=== PATIENT | male | born 1970 | race Caucasian/White ===

== ENCOUNTER 2018-01-18 12:23 | Inpatient (IN) | payer OTHER ==
[2018-01-18 12:55] VITALS: BMI 29.7
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
[2018-01-18] MEDS ORDERED: P-EPHED 60MG/TRIPROLIDI 2.5MG TABLET PO PRN (15:10)
[2018-01-18] MEDS ORDERED: MAGNESIUM CITRATE 300 ML BOTTLE PO PRN (15:10)
[2018-01-18] MEDS ORDERED: LOPERAMIDE HCL 2 MG CAPSULE PO PRN (15:10)
[2018-01-18] MEDS ORDERED: ACETAMINOPHEN 325 MG TABLET (FP) PO PRN (15:10)
[2018-01-18] MEDS ORDERED: guaiFENesin/D-METHORPHAN HB 10 ML UNIT-DOSE CUPS PO PRN (15:10)
[2018-01-18] MEDS ORDERED: NICOTINE POLACRILEX 2 MG GUM BC PRN (15:10)
[2018-01-18] MEDS ORDERED: MAGNESIUM HYDROX 2400MG/30ML ORAL SUSPENSION 30 ML CUP PO PRN (15:10)
[2018-01-18] MEDS ORDERED: hydrOXYzine PAMOATE 25 MG CAPSULE (FP) PO PRN (15:10)
[2018-01-18] MEDS ORDERED: MENTHOL/PHENOL 1 EACH UD MM PRN (15:10)
[2018-01-18] MEDS ORDERED: IBUPROFEN 400 MG TABLET (FP) PO PRN (15:10)
[2018-01-18] MEDS: diazePAM 5 MG TABLET PO PRN (16:58)
[2018-01-18] MEDS ORDERED: FLU VACCINE QUAD 60 MCG/0.5 ML (MDV 18-19) IM ONE (17:00)
[2018-01-18] MEDS: THIAMINE HCL 100 MG TABLET (FP) PO SCH (22:28)
[2018-01-18] MEDS: MELATONIN 5 MG TABLETS PO PRN (22:28)
[2018-01-18] MEDS: diazePAM 5 MG TABLET PO SCH (22:28)
[2018-01-18 23:21] LABS: URINE APPEARANCE CLEAR; URINE BILIRUBIN NEGATIVE (<2.0 mg/dL); URINE COLOR YELLOW; URINE GLUCOSE (UA) NEGATIVE (NEGATIVE); URINE KETONE NEGATIVE (NEGATIVE); URINE LEUK ESTERASE NEGATIVE (NEGATIVE); URINE NITRITE NEGATIVE (NEGATIVE); URINE PROTEIN NEGATIVE (NEGATIVE); URINE UROBILINOGEN NEGATIVE mg/dL (0.2-1.0)
[2018-01-19] MEDS ORDERED: METHADONE HCL 10 MG TABLET ONE (04:09)
[2018-01-19] MEDS ORDERED: METHADONE HCL 40 MG DISPERSABLE TABLET ONE (04:10)
[2018-01-19] MEDS: diazePAM 5 MG TABLET PO SCH ×3 (05:52→22:27)
[2018-01-19] MEDS: METHADONE 40 MG, METHADONE 10 MG PO SCH (05:52)
[2018-01-19] MEDS ORDERED: METHADONE HCL 5 MG TABLET PO SCH (06:00)
[2018-01-19 10:08] LABS: HEMATOCRIT 42.3 % (35.4-49); HEMOGLOBIN 13.5 GM/dL (11.7-16.9); MCH 30.4 pg (25.7-33.7); MEAN CELL VOLUME 94.9 fl (80-96); MEAN PLT VOLUME 9.6 fl (7.5-11.1); PLATELET COUNT 217 K/MM3 (134-434); RBC 4.46 M/mm3 (4.00-5.60); RDW 12.8 % (11.9-15.9); WHITE BLOOD COUNT 5.5 K/mm3 (4.0-10.0)
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
[2018-01-19 10:27] LABS: ALBUMIN 3.2 g/dl (3.4-5.0); ALK PHOS 69 U/L (45-117); ANION GAP 8 MMOL/L (8-16); BILIRUBIN,TOTAL 0.3 mg/dL (0.2-1); BLOOD UREA NITROGEN 24 mg/dL (7-18); CALCIUM 8.8 mg/dL (8.5-10.1); CHLORIDE 108 mmol/L (98-107); CO2 26 mmol/L (21-32); CREATININE 0.7 mg/dL (0.55-1.3); GLUCOSE,RANDOM 110 mg/dL (74-106); POTASSIUM 4.5 mmol/L (3.5-5.1); SGOT/AST 13 U/L (15-37); SGPT/ALT 20 U/L (13-61); SODIUM 142 mmol/L (136-145); TOT PROT 6.2 g/dl (6.4-8.2)
[2018-01-19] MEDS: PRENATAL VITAMINS W/ FOLIC ACID TABLET (FP) PO SCH (10:36)
[2018-01-19] MEDS: diazePAM 5 MG TABLET PO PRN (10:36)
[2018-01-19] MEDS ORDERED: FLU VACCINE QUAD 60 MCG/0.5 ML (MDV 18-19) IM ONE (12:00)
--- NOTE | 2018-01-19 12:13 | EKG ---
Test Reason : Blood Pressure : / mmHG Vent. Rate : 056 BPM Atrial Rate : 056 BPM P-R Int : 116 ms QRS Dur : 088 ms QT Int : 444 ms P-R-T Axes : 024 037 017 degrees QTc Int : 428 ms POOR DATA QUALITY, INTERPRETATION MAY BE ADVERSELY AFFECTED SINUS BRADYCARDIA OTHERWISE NORMAL ECG NO PREVIOUS ECGS AVAILABLE Confirmed by MARCY SALAS, REKHA ([id number]) on 01/19/2018 12:13:24 PM Referred By: Confirmed By:REKHA VIDAL MD
[2018-01-19] MEDS: SERTRALINE HCL 50 MG TABLET (FP) PO SCH (12:14)
[2018-01-19] MEDS: risperiDONE 1 MG TABLET (FP) PO SCH ×2 (12:14→22:27)
--- NOTE | 2018-01-19 14:53 | PN ---
S CIWA - CIWA Score Nausea/Vomitin Muscle Tremors: 4-Moderate,w/Arms Extend Anxiety: 4-Mod. Anxious/Guarded Agitation: 4-Moderately Restless Paroxysmal Sweats: 3 Orientation: 0-Oriented Tacttile Disturbances: 0-None Auditory Disturbances: 0-None Visual Disturbances: 0-None Headache: 0-None Present CIWA-Ar Total Score: 18 BHS Progress Note (SOAP) Subjective: Anxious, sweating, interrupted sleep Objective: 01/19/18 14:49 Last Vital Signs Temp Pulse Resp BP Pulse Ox 98.1 F 53 L 18 101/62 01/19/18 13:13 01/19/18 13:13 01/19/18 13:13 01/19/18 13:13 Laboratory Tests 01/18/18 01/19/18 01/19/18 23:00 07:00 07:00 WBC 5.5 RBC 4.46 Hgb 13.5 Hct 42.3 MCV 94.9 MCH 30.4 MCHC 32.0 RDW 12.8 Plt Count 217 MPV 9.6 Sodium 142 Potassium 4.5 Chloride 108 H Carbon Dioxide 26 Anion Gap 8 BUN 24 H Creatinine 0.7 Creat Clearance w eGFR > 60 Random Glucose 110 H Calcium 8.8 Total Bilirubin 0.3 AST 13 L ALT 20 Alkaline Phosphatase 69 Total Protein 6.2 L Albumin 3.2 L Urine Color Yellow Urine Appearance Clear Urine pH 6.0 Ur Specific [place] 1.021 Urine Protein Negative Urine Glucose (UA) Negative Urine Ketones Negative Urine Blood Negative Urine Nitrite Negative Urine Bilirubin Negative Urine Urobilinogen Negative Ur Leukocyte Esterase Negative RPR Titer 01/19/18 07:00 WBC RBC Hgb Hct MCV MCH MCHC RDW Plt Count MPV Sodium Potassium Chloride Carbon Dioxide Anion Gap BUN Creatinine Creat Clearance w eGFR Random Glucose Calcium Total Bilirubin AST ALT Alkaline Phosphatase Total Protein Albumin Urine Color Urine Appearance Urine pH Ur Specific [place] Urine Protein Urine Glucose (UA) Urine Ketones Urine Blood Urine Nitrite Urine Bilirubin Urine Urobilinogen Ur Leukocyte Esterase RPR Titer Nonreactive Labs reviewed: bun 24 Assessment: 01/19/18 14:50 Withdrawal sxs Noted with azotemia Plan: Continue detox Azotemia: encouraged PO water intake
[2018-01-19] MEDS ORDERED: PT OWN MED DRAWER 7, Y5N ONE (22:24)
[2018-01-19] MEDS: THIAMINE HCL 100 MG TABLET (FP) PO SCH (22:27)
[2018-01-19] MEDS: MELATONIN 5 MG TABLETS PO PRN (22:27)
[2018-01-19] MEDS: MAG HYDROX/AL HYDROX/SIMETH 30 ML UNIT-DOSE CUP PO PRN (23:55)
[2018-01-20] MEDS ORDERED: METHADONE HCL 10 MG TABLET ONE (04:49)
[2018-01-20] MEDS ORDERED: METHADONE HCL 40 MG DISPERSABLE TABLET ONE (04:49)
[2018-01-20] MEDS: METHADONE 40 MG, METHADONE 10 MG PO SCH (05:27)
[2018-01-20] MEDS: diazePAM 5 MG TABLET PO SCH ×2 (10:45→22:20)
[2018-01-20] MEDS: PRENATAL VITAMINS W/ FOLIC ACID TABLET (FP) PO SCH (10:45)
[2018-01-20] MEDS: SERTRALINE HCL 50 MG TABLET (FP) PO SCH (10:45)
[2018-01-20] MEDS: risperiDONE 1 MG TABLET (FP) PO SCH ×2 (10:45→22:19)
[2018-01-20] MEDS: MAG HYDROX/AL HYDROX/SIMETH 30 ML UNIT-DOSE CUP PO PRN (11:16)
--- NOTE | 2018-01-20 16:52 | PN ---
[facility] CIWA - CIWA Score Nausea/Vomitin Muscle Tremors: 3 Anxiety: 3 Agitation: 3 Paroxysmal Sweats: 3 Orientation: 0-Oriented Tacttile Disturbances: 0-None Auditory Disturbances: 0-None Visual Disturbances: 0-None Headache: 1-Very Mild CIWA-Ar Total Score: 15 S Progress Note (SOAP) Subjective: Interrupted sleep, sweating Objective: 01/20/18 16:51 Last Vital Signs Temp Pulse Resp BP Pulse Ox 98.6 F 53 L 18 100/63 01/20/18 14:27 01/20/18 14:27 01/20/18 14:27 01/20/18 14:27 Laboratory Tests 01/18/18 01/19/18 01/19/18 23:00 07:00 07:00 WBC 5.5 RBC 4.46 Hgb 13.5 Hct 42.3 MCV 94.9 MCH 30.4 MCHC 32.0 RDW 12.8 Plt Count 217 MPV 9.6 Sodium 142 Potassium 4.5 Chloride 108 H Carbon Dioxide 26 Anion Gap 8 BUN 24 H Creatinine 0.7 Creat Clearance w eGFR > 60 Random Glucose 110 H Calcium 8.8 Total Bilirubin 0.3 AST 13 L ALT 20 Alkaline Phosphatase 69 Total Protein 6.2 L Albumin 3.2 L Urine Color Yellow Urine Appearance Clear Urine pH 6.0 Ur Specific [place] 1.021 Urine Protein Negative Urine Glucose (UA) Negative Urine Ketones Negative Urine Blood Negative Urine Nitrite Negative Urine Bilirubin Negative Urine Urobilinogen Negative Ur Leukocyte Esterase Negative RPR Titer 01/19/18 07:00 WBC RBC Hgb Hct MCV MCH MCHC RDW Plt Count MPV Sodium Potassium Chloride Carbon Dioxide Anion Gap BUN Creatinine Creat Clearance w eGFR Random Glucose Calcium Total Bilirubin AST ALT Alkaline Phosphatase Total Protein Albumin Urine Color Urine Appearance Urine pH Ur Specific [place] Urine Protein Urine Glucose (UA) Urine Ketones Urine Blood Urine Nitrite Urine Bilirubin Urine Urobilinogen Ur Leukocyte Esterase RPR Titer Nonreactive Labs reviewed: bun 24 Assessment: 01/20/18 16:51 Withdrawal sxs Noted with azotemia Plan: Continue detox Azotemia: encouraged PO water intake
[2018-01-20] MEDS: THIAMINE HCL 100 MG TABLET (FP) PO SCH (22:20)
[2018-01-20] MEDS: MELATONIN 5 MG TABLETS PO PRN (22:20)
[2018-01-21] MEDS: MAG HYDROX/AL HYDROX/SIMETH 30 ML UNIT-DOSE CUP PO PRN (00:34)
[2018-01-21] MEDS ORDERED: METHADONE HCL 10 MG TABLET ONE (04:24)
[2018-01-21] MEDS ORDERED: METHADONE HCL 40 MG DISPERSABLE TABLET ONE (04:25)
[2018-01-21] MEDS: diazePAM 5 MG TABLET PO PRN (06:03)
[2018-01-21] MEDS: METHADONE 40 MG, METHADONE 10 MG PO SCH (06:03)
[2018-01-21] MEDS: PRENATAL VITAMINS W/ FOLIC ACID TABLET (FP) PO SCH (10:41)
[2018-01-21] MEDS: diazePAM 5 MG TABLET PO SCH ×2 (10:41→23:04)
[2018-01-21] MEDS: SERTRALINE HCL 50 MG TABLET (FP) PO SCH (10:41)
[2018-01-21] MEDS: risperiDONE 1 MG TABLET (FP) PO SCH ×2 (10:41→23:04)
--- NOTE | 2018-01-21 12:08 | PN ---
S Progress Note (SOAP) Subjective: alert,irritable,anxious,interrupted sleep Objective: 01/21/18 12:07 Vital Signs Temperature 97.2 F L 01/21/18 10:00 Pulse Rate 62 01/21/18 10:00 Respiratory Rate 16 01/21/18 10:00 Blood Pressure 88/54 L 01/21/18 10:00 O2 Sat by Pulse Oximetry (%) Assessment: 01/21/18 12:07 withdrawal symptom Plan: continue detox ,discharge in am
[2018-01-21] MEDS: THIAMINE HCL 100 MG TABLET (FP) PO SCH (23:04)
[2018-01-22] MEDS ORDERED: METHADONE HCL 40 MG DISPERSABLE TABLET ONE (03:46)
[2018-01-22] MEDS ORDERED: METHADONE HCL 10 MG TABLET ONE (03:46)
[2018-01-22] MEDS: METHADONE 40 MG, METHADONE 10 MG PO SCH (06:36)
[2018-01-22 06:38] VITALS: BP 135/72; PULSE 58; TEMP 98
[2018-01-22] MEDS ORDERED: diazePAM 5 MG TABLET PO SCH (10:00)
--- NOTE | 2018-01-22 11:35 | DS ---
[facility] Detox Discharge Summary Admission Date: 01/18/18 Discharge Date: 01/22/18 - History Present History: Alcohol Dependence, Cocaine Dependence, MMTP Pertinent Past History: Denies - Physical Exam Results Vital Signs: Vital Signs Temperature 98 F 01/22/18 06:37 Pulse Rate 58 L 01/22/18 06:37 Respiratory Rate 18 01/22/18 06:37 Blood Pressure 135/72 01/22/18 06:37 O2 Sat by Pulse Oximetry (%) Pertinent Admission Physical Exam Findings: Withdrawal sxs Laboratory Tests 01/18/18 01/19/18 01/19/18 23:00 07:00 07:00 WBC 5.5 RBC 4.46 Hgb 13.5 Hct 42.3 MCV 94.9 MCH 30.4 MCHC 32.0 RDW 12.8 Plt Count 217 MPV 9.6 Sodium 142 Potassium 4.5 Chloride 108 H Carbon Dioxide 26 Anion Gap 8 BUN 24 H Creatinine 0.7 Creat Clearance w eGFR > 60 Random Glucose 110 H Calcium 8.8 Total Bilirubin 0.3 AST 13 L ALT 20 Alkaline Phosphatase 69 Total Protein 6.2 L Albumin 3.2 L Urine Color Yellow Urine Appearance Clear Urine pH 6.0 Ur Specific [place] 1.021 Urine Protein Negative Urine Glucose (UA) Negative Urine Ketones Negative Urine Blood Negative Urine Nitrite Negative Urine Bilirubin Negative Urine Urobilinogen Negative Ur Leukocyte Esterase Negative RPR Titer 01/19/18 07:00 WBC RBC Hgb Hct MCV MCH MCHC RDW Plt Count MPV Sodium Potassium Chloride Carbon Dioxide Anion Gap BUN Creatinine Creat Clearance w eGFR Random Glucose Calcium Total Bilirubin AST ALT Alkaline Phosphatase Total Protein Albumin Urine Color Urine Appearance Urine pH Ur Specific [place] Urine Protein Urine Glucose (UA) Urine Ketones Urine Blood Urine Nitrite Urine Bilirubin Urine Urobilinogen Ur Leukocyte Esterase RPR Titer Nonreactive Labs reviewed - Treatment Hospital Course: Detox Protocol Followed, Detoxed Safely, Responded well, Discharged Condition Good - Medication Discharge Medications: Ambulatory Orders Risperidone [Risperdal -] 3 mg PO DAILY #30 tablet 02/27/16 Sertraline HCl [Zoloft -] 25 mg PO DAILY 01/18/18 - Diagnosis (1) Azotemia Status: Acute (2) Alcohol dependence with withdrawal, uncomplicated Status: Acute (3) Cocaine dependence Status: Chronic (4) Methadone maintenance therapy patient Status: Chronic (5) Nicotine dependence Status: Chronic Qualifiers: Nicotine product type: cigarettes Substance use status: unspecified nicotine-induced disorder Qualified Code(s): F17.219 - Nicotine dependence, cigarettes, with unspecified nicotine-induced disorders (6) Schizoaffective disorder Status: Chronic - AMA Did Patient Leave Against Medical Advice: No (F/U with your PCP within 1-2 weeks )
== END 2018-01-22 09:18 | disposition home or self-care (01) | DRG 773 ==
LOC: YASAS 12:23 → Y3N 15:43
PROC: HZ2ZZZZ Detoxification Services for Substance Abuse Treatment (ICD-10-PCS; principal; 2018-01-18)
DX: F10.230 Alcohol dependence with withdrawal, uncomplicated (principal); F14.20 Cocaine dependence, uncomplicated; F11.20 Opioid dependence, uncomplicated; F17.219 Nicotine dependence, cigarettes, with unspecified nicotine-induced disorders; F25.9 Schizoaffective disorder, unspecified; R79.89 Other specified abnormal findings of blood chemistry; Z86.19 Personal history of other infectious and parasitic diseases; Z91.5 Personal history of self-harm
CPT/HCPCS: 36415; 80053; 81003; 85027; 86593; 90688; 93005; 93010; G0008; J2794

== ENCOUNTER 2018-07-29 09:53 | Inpatient (IN) | payer OTHER ==
[2018-07-29 11:08] VITALS: BMI 30.2
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
[2018-07-29] MEDS ORDERED: NICOTINE POLACRILEX 2 MG GUM BUC PRN (11:40)
[2018-07-29] MEDS ORDERED: BISMUTH SUBSALICYLATE 524 MG/30 ML UD PO PRN (11:40)
[2018-07-29] MEDS ORDERED: IBUPROFEN 400 MG TABLET (FP) PO PRN (11:40)
[2018-07-29] MEDS ORDERED: MELATONIN 5 MG TABLETS PO PRN (11:40)
[2018-07-29] MEDS ORDERED: MAGNESIUM HYDROX 2400MG/30ML ORAL SUSPENSION 30 ML CUP PO PRN (11:40)
[2018-07-29] MEDS ORDERED: ACETAMINOPHEN 325 MG TABLET (FP) PO PRN (11:40)
[2018-07-29] MEDS ORDERED: ONDANSETRON *ODT* 4 MG TABLET SL PRN ×2 (11:40→11:53)
[2018-07-29] MEDS ORDERED: METHOCARBAMOL 500 MG TABLET PO PRN (11:40)
[2018-07-29] MEDS ORDERED: MAGNESIUM CITRATE 300 ML BOTTLE PO PRN (11:40)
[2018-07-29] MEDS ORDERED: chlordiazePOXIDE HCL 10 MG CAPSULE PO PRN (11:40)
[2018-07-29] MEDS ORDERED: MENTHOL/PHENOL 1 EACH UD MM PRN (11:40)
[2018-07-29] MEDS ORDERED: hydrOXYzine PAMOATE 50 MG CAPSULE (FP) PO PRN (11:40)
[2018-07-29] MEDS ORDERED: ISONIAZID 300 MG TABLET (FP) PO SCH (12:15)
[2018-07-29] MEDS: chlordiazePOXIDE HCL 25 MG CAPSULE PO SCH ×2 (12:54→22:30)
[2018-07-29] MEDS: PYRIDOXINE HCL (B-6) 50 MG TABLET (FP) PO SCH (12:54)
[2018-07-29] MEDS: THIAMINE HCL 100 MG TABLET (FP) PO SCH (22:30)
[2018-07-30] MEDS: MAG HYDROX/AL HYDROX/SIMETH 30 ML UNIT-DOSE CUP PO PRN ×2 (01:17→16:09)
[2018-07-30] MEDS ORDERED: METHADONE HCL 10 MG TABLET ONE (04:31)
[2018-07-30] MEDS ORDERED: METHADONE HCL 40 MG DISPERSABLE TABLET ONE (04:31)
[2018-07-30] MEDS: chlordiazePOXIDE HCL 25 MG CAPSULE PO SCH (05:35)
[2018-07-30] MEDS: METHADONE 40 MG, METHADONE 20 MG PO SCH (05:35)
[2018-07-30] MEDS ORDERED: METHADONE HCL 10 MG TABLET PO SCH (06:00)
[2018-07-30] MEDS: ISONIAZID 300 MG TABLET (FP) PO SCH (08:12)
[2018-07-30 10:22] LABS: ALBUMIN 3.6 g/dl (3.4-5.0); ALK PHOS 75 U/L (45-117); ANION GAP 5 MMOL/L (8-16); BILIRUBIN,TOTAL 0.5 mg/dL (0.2-1); BLOOD UREA NITROGEN 24 mg/dL (7-18); CALCIUM 8.7 mg/dL (8.5-10.1); CHLORIDE 108 mmol/L (98-107); CO2 27 mmol/L (21-32); CREATININE 0.8 mg/dL (0.55-1.3); GLUCOSE,RANDOM 110 mg/dL (74-106); POTASSIUM 4.7 mmol/L (3.5-5.1); SGOT/AST 16 U/L (15-37); SGPT/ALT 22 U/L (13-61); SODIUM 140 mmol/L (136-145); TOT PROT 6.5 g/dl (6.4-8.2)
[2018-07-30] MEDS: PRENATAL VITAMINS W/ FOLIC ACID TABLET (FP) PO SCH (10:25)
[2018-07-30] MEDS: PYRIDOXINE HCL (B-6) 50 MG TABLET (FP) PO SCH (10:26)
[2018-07-30 10:33] LABS: HEMATOCRIT 42.3 % (35.4-49); HEMOGLOBIN 14.3 GM/dL (11.7-16.9); MCH 31.3 pg (25.7-33.7); MCHC 33.9 g/dl (32.0-35.9); MEAN CELL VOLUME 92.2 fl (80-96); MEAN PLT VOLUME 9.9 fl (7.5-11.1); PLATELET COUNT 184 K/MM3 (134-434); RBC 4.58 M/mm3 (4.00-5.60); WHITE BLOOD COUNT 7.5 K/mm3 (4.0-10.0)
[2018-07-30] MEDS: chlordiazePOXIDE 5 MG CAPSULE PO SCH ×2 (13:30→22:25)
--- NOTE | 2018-07-30 13:37 | PN ---
[facility] CIWA - CIWA Score Nausea/Vomitin-Mild Nausea/No Vomiting Muscle Tremors: 3 Anxiety: 3 Agitation: 3 Paroxysmal Sweats: 3 Orientation: 0-Oriented Tacttile Disturbances: 0-None Auditory Disturbances: 0-None Visual Disturbances: 0-None Headache: 0-None Present CIWA-Ar Total Score: 13 BHS Progress Note (SOAP) Subjective: Denies withdrawal symptoms presently stating medication is working well. Patient is restless. Objective: 07/30/18 13:34 Last Vital Signs Temp Pulse Resp BP Pulse Ox 98.2 F 55 L 18 129/60 07/30/18 10:16 07/30/18 10:16 07/30/18 10:16 07/30/18 10:16 Laboratory Tests 07/30/18 07/30/18 07/30/18 07:40 07:40 07:40 WBC 7.5 RBC 4.58 Hgb 14.3 Hct 42.3 MCV 92.2 MCH 31.3 MCHC 33.9 RDW 13.0 Plt Count 184 MPV 9.9 Sodium 140 Potassium 4.7 Chloride 108 H Carbon Dioxide 27 Anion Gap 5 L BUN 24 H Creatinine 0.8 Creat Clearance w eGFR 103.18 Random Glucose 110 H Calcium 8.7 Total Bilirubin 0.5 AST 16 ALT 22 Alkaline Phosphatase 75 Total Protein 6.5 Albumin 3.6 RPR Titer Nonreactive Labs reviewed: bun 24 Assessment: 07/30/18 13:35 Withdrawal symptoms Noted with azotemia Plan: Continue detox Azotemia: encouraged PO water intake
[2018-07-30] MEDS: THIAMINE HCL 100 MG TABLET (FP) PO SCH (22:25)
[2018-07-31] MEDS ORDERED: METHADONE HCL 10 MG TABLET ONE (04:05)
[2018-07-31] MEDS ORDERED: METHADONE HCL 40 MG DISPERSABLE TABLET ONE (04:05)
[2018-07-31] MEDS: MAG HYDROX/AL HYDROX/SIMETH 30 ML UNIT-DOSE CUP PO PRN ×2 (04:58→14:40)
[2018-07-31] MEDS: chlordiazePOXIDE 5 MG CAPSULE PO SCH (06:14)
[2018-07-31] MEDS: METHADONE 40 MG, METHADONE 20 MG PO SCH (06:14)
[2018-07-31] MEDS: ISONIAZID 300 MG TABLET (FP) PO SCH (06:15)
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
[2018-07-31] MEDS: PRENATAL VITAMINS W/ FOLIC ACID TABLET (FP) PO SCH (11:00)
[2018-07-31] MEDS: PYRIDOXINE HCL (B-6) 50 MG TABLET (FP) PO SCH (11:00)
--- NOTE | 2018-07-31 11:14 | PN ---
S CIWA - CIWA Score Nausea/Vomitin-No Nausea/No Vomiting Muscle Tremors: 3 Anxiety: 2 Agitation: 0-Normal Activity Paroxysmal Sweats: 3 Orientation: 0-Oriented Tacttile Disturbances: 0-None Auditory Disturbances: 0-None Visual Disturbances: 0-None Headache: 0-None Present CIWA-Ar Total Score: 8 BHS Progress Note (SOAP) Subjective: PATIENT C/O SHAKES, ANXIETY AND NIGHT SWEATS Objective: 07/31/18 11:12 Laboratory Tests 07/30/18 07/30/18 07/30/18 07:40 07:40 07:40 WBC 7.5 RBC 4.58 Hgb 14.3 Hct 42.3 MCV 92.2 MCH 31.3 MCHC 33.9 RDW 13.0 Plt Count 184 MPV 9.9 Sodium 140 Potassium 4.7 Chloride 108 H Carbon Dioxide 27 Anion Gap 5 L BUN 24 H Creatinine 0.8 Creat Clearance w eGFR 103.18 Random Glucose 110 H Calcium 8.7 Total Bilirubin 0.5 AST 16 ALT 22 Alkaline Phosphatase 75 Total Protein 6.5 Albumin 3.6 RPR Titer Nonreactive Vital Signs Temperature 97.9 F 07/31/18 10:34 Pulse Rate 57 L 07/31/18 10:34 Respiratory Rate 16 07/31/18 10:34 Blood Pressure 119/78 07/31/18 10:34 O2 Sat by Pulse Oximetry (%) PE: ALERT AND ORIENTED X 3 SKIN WARM AND MOIST EXT FULL ROM, +TREMORS AMB AD BARNEY ANXIOUS Assessment: 07/31/18 11:13 WITHDRAWAL SX Plan: CONTINUE DETOX ENCOURAGE ORAL FLUIDS MONITOR CLINICALLY
[2018-07-31] MEDS: SERTRALINE HCL 50 MG TABLET (FP) PO SCH (12:34)
[2018-07-31] MEDS: chlordiazePOXIDE HCL 10 MG CAPSULE PO SCH ×2 (12:34→22:26)
[2018-07-31] MEDS: risperiDONE 2 MG TABLET PO SCH (12:34)
[2018-07-31] MEDS ORDERED: chlordiazePOXIDE HCL 10 MG CAPSULE PO PRN (13:00)
[2018-07-31] MEDS ORDERED: MIRTAZAPINE 15 MG TABLET (FP) PO SCH (22:00)
[2018-07-31] MEDS: THIAMINE HCL 100 MG TABLET (FP) PO SCH (22:25)
[2018-08-01] MEDS ORDERED: METHADONE HCL 40 MG DISPERSABLE TABLET ONE (04:37)
[2018-08-01] MEDS ORDERED: METHADONE HCL 10 MG TABLET ONE (04:37)
[2018-08-01] MEDS: METHADONE 40 MG, METHADONE 20 MG PO SCH (06:20)
[2018-08-01] MEDS: chlordiazePOXIDE HCL 10 MG CAPSULE PO SCH ×2 (06:21→13:50)
[2018-08-01] MEDS: ISONIAZID 300 MG TABLET (FP) PO SCH (07:22)
--- NOTE | 2018-08-01 08:56 | DS ---
[facility] Detox Discharge Summary Admission Date: 07/29/18 Discharge Date: 08/01/18 - History Present History: Alcohol Dependence, Cocaine Dependence, MMTP - Physical Exam Results Vital Signs: Vital Signs Temperature 97.3 F L 08/01/18 06:30 Pulse Rate 49 L 08/01/18 06:30 Respiratory Rate 18 08/01/18 06:30 Blood Pressure 100/61 08/01/18 06:30 O2 Sat by Pulse Oximetry (%) - Treatment Hospital Course: Detox Protocol Followed, Detoxed Safely, Responded well, Discharged Condition Good, Rehab Referral Accepted - Medication Discharge Medications: Ambulatory Orders Sertraline HCl [Zoloft -] 100 mg PO DAILY 01/18/18 Clotrimazole [Lotrimin 1% Cream -] 1 applic TP BID 07/29/18 Isoniazid 300 mg PO DAILY 07/29/18 Methadone HCl 60 mg PO DAILY 07/29/18 Mirtazapine 45 mg PO DAILY 07/29/18 Nystatin [Nyamyc] 15 gm TP DAILY 07/29/18 Risperidone [Risperdal -] 4 mg PO DAILY 07/29/18 - Diagnosis (1) Alcohol dependence with withdrawal, uncomplicated Current Visit: Yes Status: Chronic (2) Cocaine dependence Current Visit: Yes Status: Chronic (3) Nicotine dependence Current Visit: Yes Status: Chronic Qualifiers: Nicotine product type: cigarettes Substance use status: uncomplicated Qualified Code(s): F17.210 - Nicotine dependence, cigarettes, uncomplicated (4) Methadone maintenance therapy patient Current Visit: Yes Status: Chronic (5) Schizoaffective disorder Current Visit: Yes Status: Chronic Qualifiers: Schizoaffective disorder type: depressive Qualified Code(s): F25.1 - Schizoaffective disorder, depressive type (6) Cannabis dependence Current Visit: No Status: Active (7) MMTP Current Visit: Yes Status: Chronic (8) Nicotine dependence Current Visit: Yes Status: Chronic Qualifiers: Nicotine product type: cigarettes Substance use status: uncomplicated Qualified Code(s): F17.210 - Nicotine dependence, cigarettes, uncomplicated (9) Schizoaffective disorder, bipolar type Current Visit: No Status: Chronic (10) Hepatitis C Current Visit: No Status: Resolved Qualifiers: Viral hepatitis chronicity: chronic Hepatic coma status: without hepatic coma Qualified Code(s): B18.2 - Chronic viral hepatitis C - AMA Did Patient Leave Against Medical Advice: No (referred to [email or web address])
[2018-08-01] MEDS: risperiDONE 2 MG TABLET PO SCH (10:33)
[2018-08-01] MEDS: PYRIDOXINE HCL (B-6) 50 MG TABLET (FP) PO SCH (10:34)
[2018-08-01] MEDS: SERTRALINE HCL 50 MG TABLET (FP) PO SCH (10:34)
[2018-08-01] MEDS: PRENATAL VITAMINS W/ FOLIC ACID TABLET (FP) PO SCH (10:34)
[2018-08-01 17:07] VITALS: BP 120/72; PULSE 68; TEMP 98.1
== END 2018-08-01 19:19 | disposition other institution (70) | DRG 773 ==
LOC: YASAS 09:53 → Y6N 11:33
PROVIDERS: ADMIT Surgery; ATTEND Surgery
PROC: HZ2ZZZZ Detoxification Services for Substance Abuse Treatment (ICD-10-PCS; principal; 2018-07-29)
DX: F10.230 Alcohol dependence with withdrawal, uncomplicated (principal); F11.20 Opioid dependence, uncomplicated; F14.20 Cocaine dependence, uncomplicated; F12.20 Cannabis dependence, uncomplicated; F17.210 Nicotine dependence, cigarettes, uncomplicated; F25.1 Schizoaffective disorder, depressive type; B18.2 Chronic viral hepatitis C; R79.89 Other specified abnormal findings of blood chemistry; Z91.5 Personal history of self-harm
CPT/HCPCS: 36415; 71046-TC-FY; 80053; 85027; 86593

== ENCOUNTER 2018-08-01 19:25 | Inpatient (IN) | payer OTHER ==
[2018-08-01] MEDS ORDERED: P-EPHED 60MG/TRIPROLIDI 2.5MG TABLET PO PRN (20:57)
[2018-08-01] MEDS ORDERED: MAGNESIUM HYDROX 2400MG/30ML ORAL SUSPENSION 30 ML CUP PO PRN (20:57)
[2018-08-01] MEDS ORDERED: LOPERAMIDE HCL 2 MG CAPSULE PO PRN (20:57)
[2018-08-01] MEDS ORDERED: MENTHOL/PHENOL 1 EACH UD MM PRN (20:57)
[2018-08-01] MEDS ORDERED: IBUPROFEN 400 MG TABLET (FP) PO PRN (20:57)
[2018-08-01] MEDS ORDERED: guaiFENesin 200 MG/10 ML 10 ML UNIT-DOSE CUPS PO PRN (20:57)
[2018-08-01] MEDS ORDERED: ACETAMINOPHEN 325 MG TABLET (FP) PO PRN (20:57)
[2018-08-01] MEDS ORDERED: NICOTINE POLACRILEX 2 MG GUM BUC PRN (20:57)
[2018-08-01] MEDS ORDERED: MAGNESIUM CITRATE 300 ML BOTTLE PO PRN (20:57)
--- NOTE | 2018-08-01 20:57 | HP ---
[facility] Rehab Assess/Revision - Admission History Ad[facility]hab [facility] Date of Admission to Rehab: - Vital signs Vital Signs: Vital Signs Period Temp Pulse Resp BP Sys/Kan Pulse Ox Last 24 Hr 97.9 F 66 18 141/69 - Findings Detox History & Physical reviewed: Yes Concur with findings: Yes Inpatient Rehab Admission - Rehab Decision to Admit Inpatient rehab admission?: Yes - Initial Determination Are CD services needed?: Yes Free of communicable disease: Yes Not in need of hospitalization: Yes - Rehab Admission Criteria Previous failed treatment: Yes Poor recovery environment: Yes Comorbidities: Yes Lacks judgement: Yes Patient is meeting Inpatient Rehab admission criteria:: Yes
[2018-08-01] MEDS: THIAMINE HCL 100 MG TABLET (FP) PO SCH (21:58)
[2018-08-02] MEDS ORDERED: METHADONE HCL 10 MG TABLET PO SCH (06:30)
[2018-08-02] MEDS ORDERED: METHADONE HCL 10 MG TABLET ONE (06:49)
[2018-08-02] MEDS ORDERED: METHADONE HCL 40 MG DISPERSABLE TABLET ONE (06:49)
[2018-08-02] MEDS: METHADONE 40 MG, METHADONE 20 MG PO SCH (07:00)
[2018-08-02] MEDS: PYRIDOXINE HCL (B-6) 50 MG TABLET (FP) PO SCH (11:57)
[2018-08-02] MEDS: CLOTRIMAZOLE 1% CREAM 15 GM TUBE TP SCH ×2 (11:57→21:02)
[2018-08-02] MEDS: ISONIAZID 300 MG TABLET (FP) PO SCH (11:57)
[2018-08-02] MEDS: PRENATAL VITAMINS W/ FOLIC ACID TABLET (FP) PO SCH (11:57)
[2018-08-02] MEDS: NICOTINE 14 MG/24 HOURS TOPICAL PATCH TD SCH (11:59)
[2018-08-02] MEDS: THIAMINE HCL 100 MG TABLET (FP) PO SCH (21:02)
[2018-08-02] MEDS: MELATONIN 5 MG TABLETS PO PRN (21:03)
[2018-08-02] MEDS: hydrOXYzine PAMOATE 25 MG CAPSULE (FP) PO PRN (21:03)
[2018-08-03] MEDS: MAG HYDROX/AL HYDROX/SIMETH 30 ML UNIT-DOSE CUP PO PRN (00:24)
[2018-08-03] MEDS ORDERED: METHADONE HCL 10 MG TABLET ONE (03:44)
[2018-08-03] MEDS ORDERED: METHADONE HCL 40 MG DISPERSABLE TABLET ONE (03:45)
[2018-08-03] MEDS: METHADONE 40 MG, METHADONE 20 MG PO SCH (06:24)
[2018-08-03] MEDS: PRENATAL VITAMINS W/ FOLIC ACID TABLET (FP) PO SCH (10:02)
[2018-08-03] MEDS: NICOTINE 14 MG/24 HOURS TOPICAL PATCH TD SCH (10:04)
[2018-08-03] MEDS: PYRIDOXINE HCL (B-6) 50 MG TABLET (FP) PO SCH (10:04)
[2018-08-03] MEDS: CLOTRIMAZOLE 1% CREAM 15 GM TUBE TP SCH ×2 (10:04→21:04)
[2018-08-03] MEDS: ISONIAZID 300 MG TABLET (FP) PO SCH (10:04)
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
[2018-08-03] MEDS: THIAMINE HCL 100 MG TABLET (FP) PO SCH (21:04)
[2018-08-03] MEDS: MELATONIN 5 MG TABLETS PO PRN (21:04)
[2018-08-04] MEDS: MAG HYDROX/AL HYDROX/SIMETH 30 ML UNIT-DOSE CUP PO PRN (04:01)
[2018-08-04] MEDS ORDERED: METHADONE HCL 10 MG TABLET ONE (05:43)
[2018-08-04] MEDS ORDERED: METHADONE HCL 40 MG DISPERSABLE TABLET ONE (05:43)
[2018-08-04] MEDS: METHADONE 40 MG, METHADONE 20 MG PO SCH (06:34)
[2018-08-04] MEDS: ISONIAZID 300 MG TABLET (FP) PO SCH (06:35)
[2018-08-04] MEDS: NICOTINE 14 MG/24 HOURS TOPICAL PATCH TD SCH (10:18)
[2018-08-04] MEDS: CLOTRIMAZOLE 1% CREAM 15 GM TUBE TP SCH ×2 (10:18→21:52)
[2018-08-04] MEDS: PRENATAL VITAMINS W/ FOLIC ACID TABLET (FP) PO SCH (10:18)
[2018-08-04] MEDS: PYRIDOXINE HCL (B-6) 50 MG TABLET (FP) PO SCH (10:19)
[2018-08-04] MEDS: risperiDONE 2 MG TABLET PO SCH (11:26)
[2018-08-04] MEDS: SERTRALINE HCL 50 MG TABLET (FP) PO SCH (11:26)
[2018-08-04] MEDS: MIRTAZAPINE 15 MG TABLET (FP) PO SCH (21:53)
[2018-08-04] MEDS: hydrOXYzine PAMOATE 25 MG CAPSULE (FP) PO PRN (21:53)
[2018-08-04] MEDS: THIAMINE HCL 100 MG TABLET (FP) PO SCH (21:53)
[2018-08-05] MEDS ORDERED: METHADONE HCL 10 MG TABLET ONE (03:18)
[2018-08-05] MEDS ORDERED: METHADONE HCL 40 MG DISPERSABLE TABLET ONE (03:18)
[2018-08-05] MEDS: ISONIAZID 300 MG TABLET (FP) PO SCH (06:33)
[2018-08-05] MEDS: METHADONE 40 MG, METHADONE 20 MG PO SCH (06:34)
[2018-08-05] MEDS: risperiDONE 2 MG TABLET PO SCH (09:40)
[2018-08-05] MEDS: CLOTRIMAZOLE 1% CREAM 15 GM TUBE TP SCH ×2 (09:40→21:02)
[2018-08-05] MEDS: NICOTINE 14 MG/24 HOURS TOPICAL PATCH TD SCH (09:41)
[2018-08-05] MEDS: SERTRALINE HCL 50 MG TABLET (FP) PO SCH (09:41)
[2018-08-05] MEDS: PYRIDOXINE HCL (B-6) 50 MG TABLET (FP) PO SCH (09:41)
[2018-08-05] MEDS: PRENATAL VITAMINS W/ FOLIC ACID TABLET (FP) PO SCH (09:41)
[2018-08-05] MEDS: MIRTAZAPINE 15 MG TABLET (FP) PO SCH (21:02)
[2018-08-05] MEDS: THIAMINE HCL 100 MG TABLET (FP) PO SCH (21:02)
[2018-08-06] MEDS ORDERED: METHADONE HCL 40 MG DISPERSABLE TABLET ONE (03:03)
[2018-08-06] MEDS ORDERED: METHADONE HCL 10 MG TABLET ONE (03:03)
[2018-08-06] MEDS: ISONIAZID 300 MG TABLET (FP) PO SCH (06:04)
[2018-08-06] MEDS: METHADONE 40 MG, METHADONE 20 MG PO SCH (06:04)
[2018-08-06 06:43] VITALS: BP 141/66; PULSE 70; TEMP 98.2
[2018-08-06] MEDS: PRENATAL VITAMINS W/ FOLIC ACID TABLET (FP) PO SCH (09:42)
[2018-08-06] MEDS: CLOTRIMAZOLE 1% CREAM 15 GM TUBE TP SCH (09:42)
[2018-08-06] MEDS: SERTRALINE HCL 50 MG TABLET (FP) PO SCH (09:42)
[2018-08-06] MEDS: risperiDONE 2 MG TABLET PO SCH (09:42)
[2018-08-06] MEDS: PYRIDOXINE HCL (B-6) 50 MG TABLET (FP) PO SCH (09:42)
[2018-08-06] MEDS: MAG HYDROX/AL HYDROX/SIMETH 30 ML UNIT-DOSE CUP PO PRN (09:43)
[2018-08-06] MEDS: NICOTINE 14 MG/24 HOURS TOPICAL PATCH TD SCH (09:43)
--- NOTE | 2018-08-06 17:30 | PN ---
[facility] Progress Note Note: patient does not want to continue treatment,stated he is feeling better,and has to leave for personal problem,all attempts to convince patient to stay with no avail,high risks of relapsing explained to patient and understood,signed release against medical advice, left the unit in stable and good condition,follow up with mmtp or to emergency room if any emergency problem Vital Signs Temperature 98.2 F 08/06/18 06:43 Pulse Rate 70 08/06/18 06:43 Respiratory Rate 18 08/06/18 06:43 Blood Pressure 141/66 08/06/18 06:43 O2 Sat by Pulse Oximetry (%) patient has medications at home
--- NOTE | 2018-08-06 17:36 | PN ---
S Progress Note Note: this is discharge note from rehab date of admission 08/01/18 date of discharge 08/06/18 diagnosis alcohol dependence cocaine dependence hepatitis c mmtp nicotine dependence schizoaffective disorder Vital Signs Temperature 98.2 F 08/06/18 06:43 Pulse Rate 70 08/06/18 06:43 Respiratory Rate 18 08/06/18 06:43 Blood Pressure 141/66 08/06/18 06:43 O2 Sat by Pulse Oximetry (%) patient signed release against medical advice as mentioned in the progress note has his medication at home
== END 2018-08-06 15:03 | disposition left against medical advice (07) | DRG 770 ==
LOC: YASAS 19:25 → Y5N 19:27
PROVIDERS: ADMIT Neuromusculoskeletal Medicine & OMM; ATTEND Neuromusculoskeletal Medicine & OMM
PROC: HZ42ZZZ Group Counseling for Substance Abuse Treatment, Cognitive-Behavioral (ICD-10-PCS; principal; 2018-08-01)
DX: F10.20 Alcohol dependence, uncomplicated (principal); F14.20 Cocaine dependence, uncomplicated; F11.20 Opioid dependence, uncomplicated; F17.210 Nicotine dependence, cigarettes, uncomplicated; F25.0 Schizoaffective disorder, bipolar type; B18.2 Chronic viral hepatitis C